=== PATIENT | male | born 1950 | race Caucasian/White ===

== ENCOUNTER → 2023-05-20 10:20 | Outpatient (REF) | payer MEDICARE, OTHER, SELFPAY ==
[2023-05-20 11:21] LABS: % Basophils 0.9 % (0-2); % Immature Granulocytes 0.3 % (0-0.5); % Lymphocytes 18.4 % (20.5-51.1); % Monocytes 11.1 % (1.7-9.3); % Neutrophils 66.3 % (42.2-75.2); Absolute Basophils 0.1 10^3/uL (0-0.2); Absolute Eosinophils 0.2 10^3/uL (0-0.7); Absolute Lymphocytes 1.2 10^3/uL (1.2-3.4); Absolute Monocytes 0.7 10^3/uL (0.1-0.6); Absolute Neutrophils 4.4 10^3/uL (1.4-6.5); Hematocrit 38.8 % (39.0-52.0); Hemoglobin 13.2 g/dL (13.0-18.0); Mean Corpuscular Hgb 30.1 pg (27.0-31.0); Mean Corpuscular Volume 88.4 fL (80.0-94.0); Mean Platelet Volume 10.6 fL (7.4-10.4); Nucleated Red Blood Cells % 0 % (-); Platelet Count 247 10^3/uL (130-400); Red Blood Cell Count 4.39 10^6/uL (4.70-6.10); Red Cell Dist. Width 14.6 % (11.5-14.5); White Blood Cell Count 6.6 10^3/uL (4.8-10.8)
[2023-05-20 11:58] LABS: ALT (SGPT) 37 U/L (0-50); AST (SGOT) 40 U/L (17-59); Albumin 4.7 g/dl (3.5-5.0); Alkaline Phosphatase 105 U/L (38-126); Blood Urea Nitrogen 25 mg/dl (9-20); Calcium 9.8 mg/dl (8.4-10.2); Carbon Dioxide 25 mmol/L (22-30); Chloride 102 mmol/L (98-107); Glucose 100 mg/dl (70-99); Potassium 4.9 mmol/L (3.5-5.1); Sodium 137 mmol/L (135-145); Total Bilirubin 0.5 mg/dl (0.2-1.3); Total Protein 6.9 g/dl (6.3-8.2); eGFR > 60.00
[2023-05-20 12:00] LABS: C-Reactive Protein < 5.00 mg/L (0.0-10.00)
== END ==
LOC: REG 10:20
PROVIDERS: ATTENDING PHYSICIAN Internal Medicine Rheumatology; FAMILY PHYSICIAN Family Medicine
DX: M06.4 Inflammatory polyarthropathy (principal); Z79.899 Other long term (current) drug therapy
CPT/HCPCS: 36415; 80053; 85025; 86140

== ENCOUNTER → 2023-06-24 10:32 | Outpatient (REF) | payer MEDICARE, OTHER, SELFPAY ==
[2023-06-24 11:35] LABS: % Basophils 0.1 % (0-2); % Immature Granulocytes 0.4 % (0-0.5); % Lymphocytes 6.8 % (20.5-51.1); % Monocytes 7.9 % (1.7-9.3); % Neutrophils 84.8 % (42.2-75.2); Absolute Lymphocytes 0.5 10^3/uL (1.2-3.4); Absolute Monocytes 0.6 10^3/uL (0.1-0.6); Absolute Neutrophils 6.6 10^3/uL (1.4-6.5); Hemoglobin 12.7 g/dL (13.0-18.0); Mean Corp Hgb Conc. 33.4 g/dL (33.0-37.0); Mean Corpuscular Hgb 29.7 pg (27.0-31.0); Mean Corpuscular Volume 88.8 fL (80.0-94.0); Mean Platelet Volume 10.6 fL (7.4-10.4); Nucleated Red Blood Cells % 0 % (-); Platelet Count 266 10^3/uL (130-400); Red Blood Cell Count 4.28 10^6/uL (4.70-6.10); Red Cell Dist. Width 15.9 % (11.5-14.5); White Blood Cell Count 7.8 10^3/uL (4.8-10.8)
[2023-06-24 12:00] LABS: ALT (SGPT) 36 U/L (0-50); AST (SGOT) 42 U/L (17-59); Albumin 4.9 g/dl (3.5-5.0); Alkaline Phosphatase 100 U/L (38-126); Blood Urea Nitrogen 22 mg/dl (9-20); Calcium 10.2 mg/dl (8.4-10.2); Carbon Dioxide 22 mmol/L (22-30); Chloride 101 mmol/L (98-107); Glucose 115 mg/dl (70-99); Potassium 4.6 mmol/L (3.5-5.1); Sodium 136 mmol/L (135-145); Total Bilirubin 0.7 mg/dl (0.2-1.3); Total Protein 7.3 g/dl (6.3-8.2); eGFR > 60.00
[2023-06-24 12:05] LABS: C-Reactive Protein < 5.00 mg/L (0.0-10.00)
[2023-06-26 20:42] LABS: Quantiferon Mitogen minus NIL 2.36 IU/mL; Quantiferon NIL 0.01 IU/mL; Quantiferon Plus TB2 minus NIL 0.01 IU/mL (0.00-0.34); Quantiferon TB Gold Plus Negative (Negative)
== END ==
LOC: REG 10:32
PROVIDERS: ATTENDING PHYSICIAN Internal Medicine Rheumatology; FAMILY PHYSICIAN Family Medicine
DX: Z12.5 Encounter for screening for malignant neoplasm of prostate (principal); M06.00 Rheumatoid arthritis without rheumatoid factor, unspecified site; M79.641 Pain in right hand; Z11.1 Encounter for screening for respiratory tuberculosis; Z79.899 Other long term (current) drug therapy
CPT/HCPCS: 36415; 80053; 85025; 86140; 86480; G0103

== ENCOUNTER → 2023-07-10 14:42 | Outpatient (REF) | payer MEDICARE, OTHER, SELFPAY ==
[2023-07-10 16:23] LABS: % Basophils 0.6 % (0-2); % Eosinophils 1.7 % (0-6); % Immature Granulocytes 0.2 % (0-0.5); % Lymphocytes 21.4 % (20.5-51.1); % Monocytes 9.5 % (1.7-9.3); % Neutrophils 66.6 % (42.2-75.2); Absolute Eosinophils 0.1 10^3/uL (0-0.7); Absolute Lymphocytes 1.1 10^3/uL (1.2-3.4); Absolute Monocytes 0.5 10^3/uL (0.1-0.6); Absolute Neutrophils 3.5 10^3/uL (1.4-6.5); Hematocrit 35.1 % (39.0-52.0); Hemoglobin 12.3 g/dL (13.0-18.0); Mean Corpuscular Hgb 30.8 pg (27.0-31.0); Mean Platelet Volume 10.5 fL (7.4-10.4); Nucleated Red Blood Cells % 0 % (-); Platelet Count 265 10^3/uL (130-400); Red Blood Cell Count 3.99 10^6/uL (4.70-6.10); Red Cell Dist. Width 16.3 % (11.5-14.5); White Blood Cell Count 5.3 10^3/uL (4.8-10.8)
[2023-07-10 16:37] LABS: Iron 110 ug/dl (49-181)
[2023-07-10 16:46] LABS: Percent Saturation 27 % (20-50); Total Iron Binding Capacity 405 ug/dl (261-462)
[2023-07-10 17:22] LABS: Ferritin 16.1 ng/ml (17.9-464.0)
[2023-07-10 17:53] LABS: Folate > 20.0 ng/ml (2.76-20); Vitamin B12 547 pg/ml (239-931)
== END ==
LOC: REG 14:42
PROVIDERS: ATTENDING PHYSICIAN Internal Medicine Rheumatology; FAMILY PHYSICIAN Family Medicine
DX: D64.9 Anemia, unspecified (principal); A09 Infectious gastroenteritis and colitis, unspecified; D51.9 Vitamin B12 deficiency anemia, unspecified; E53.8 Deficiency of other specified B group vitamins; Z79.899 Other long term (current) drug therapy
CPT/HCPCS: 36415; 82607; 82728; 82746; 83540; 83550; 85025

== ENCOUNTER → 2023-08-06 06:24 | Day surgery (SDC) | payer MEDICARE, OTHER, SELFPAY | LOC: GI 06:24 | PROVIDERS: ATTENDING PHYSICIAN Specialist | DX: K22.70 Barrett's esophagus without dysplasia (principal); K44.9 Diaphragmatic hernia without obstruction or gangrene; K31.7 Polyp of stomach and duodenum | CPT/HCPCS: 43239; 88305; 88342 ==

== ENCOUNTER → 2023-08-21 10:53 | Outpatient (REF) | payer MEDICARE, OTHER, SELFPAY ==
[2023-08-21 12:12] LABS: % Basophils 0.8 % (0-2); % Eosinophils 2.2 % (0-6); % Immature Granulocytes 0.6 % (0-0.5); % Lymphocytes 18.8 % (20.5-51.1); % Monocytes 9.5 % (1.7-9.3); % Neutrophils 68.1 % (42.2-75.2); Absolute Basophils 0.1 10^3/uL (0-0.2); Absolute Eosinophils 0.1 10^3/uL (0-0.7); Absolute Lymphocytes 1.2 10^3/uL (1.2-3.4); Absolute Monocytes 0.6 10^3/uL (0.1-0.6); Absolute Neutrophils 4.3 10^3/uL (1.4-6.5); Hematocrit 38.2 % (39.0-52.0); Hemoglobin 12.9 g/dL (13.0-18.0); Mean Corp Hgb Conc. 33.8 g/dL (33.0-37.0); Mean Corpuscular Hgb 31.9 pg (27.0-31.0); Mean Corpuscular Volume 94.3 fL (80.0-94.0); Mean Platelet Volume 10.6 fL (7.4-10.4); Nucleated Red Blood Cells % 0 % (-); Platelet Count 252 10^3/uL (130-400); Red Blood Cell Count 4.05 10^6/uL (4.70-6.10); Red Cell Dist. Width 15.2 % (11.5-14.5); White Blood Cell Count 6.3 10^3/uL (4.8-10.8)
[2023-08-21 14:19] LABS: Ferritin 20.2 ng/ml (17.9-464.0)
== END ==
LOC: REG 10:53
PROVIDERS: ATTENDING PHYSICIAN Internal Medicine Rheumatology; FAMILY PHYSICIAN Family Medicine
DX: D64.9 Anemia, unspecified (principal); E61.1 Iron deficiency; G95.9 Disease of spinal cord, unspecified
CPT/HCPCS: 36415; 82728; 85025

== ENCOUNTER → 2023-08-27 10:56 | Outpatient (REF) | payer MEDICARE, OTHER, SELFPAY | LOC: REG 10:56 | PROVIDERS: ATTENDING PHYSICIAN Internal Medicine Rheumatology; FAMILY PHYSICIAN Family Medicine | DX: D64.9 Anemia, unspecified (principal); E61.1 Iron deficiency; G95.9 Disease of spinal cord, unspecified; M06.4 Inflammatory polyarthropathy; M11.20 Other chondrocalcinosis, unspecified site; M19.041 Primary osteoarthritis, right hand; M19.042 Primary osteoarthritis, left hand; M50.90 Cervical disc disorder, unspecified, unspecified cervical region; M51.37 Other intervertebral disc degeneration, lumbosacral region; M54.9 Dorsalgia, unspecified; M79.641 Pain in right hand; Z79.899 Other long term (current) drug therapy | CPT/HCPCS: 82272 ==

== ENCOUNTER → 2023-09-12 10:34 | Outpatient (REF) | payer MEDICARE, OTHER, SELFPAY ==
[2023-09-12 11:19] LABS: % Basophils 0.7 % (0-2); % Immature Granulocytes 0.2 % (0-0.5); % Lymphocytes 15.6 % (20.5-51.1); % Monocytes 11.6 % (1.7-9.3); % Neutrophils 69.9 % (42.2-75.2); Absolute Eosinophils 0.1 10^3/uL (0-0.7); Absolute Lymphocytes 0.9 10^3/uL (1.2-3.4); Absolute Monocytes 0.7 10^3/uL (0.1-0.6); Absolute Neutrophils 4.2 10^3/uL (1.4-6.5); Hematocrit 35.7 % (39.0-52.0); Hemoglobin 12.2 g/dL (13.0-18.0); Mean Corp Hgb Conc. 34.2 g/dL (33.0-37.0); Mean Corpuscular Hgb 32.8 pg (27.0-31.0); Mean Platelet Volume 10.1 fL (7.4-10.4); Nucleated Red Blood Cells % 0 % (-); Platelet Count 235 10^3/uL (130-400); Red Blood Cell Count 3.72 10^6/uL (4.70-6.10); Red Cell Dist. Width 14.5 % (11.5-14.5)
== END ==
LOC: REG 10:34
PROVIDERS: ATTENDING PHYSICIAN Physician Assistant; FAMILY PHYSICIAN Family Medicine
DX: A69.20 Lyme disease, unspecified (principal); D64.9 Anemia, unspecified
CPT/HCPCS: 36415; 85025; 86618

== ENCOUNTER → 2023-11-14 13:19 | Outpatient (REF) | payer MEDICARE, OTHER, SELFPAY ==
[2023-11-14 14:06] LABS: % Basophils 0.6 % (0-2); % Eosinophils 1.5 % (0-6); % Immature Granulocytes 0.2 % (0-0.5); % Lymphocytes 22.6 % (20.5-51.1); % Monocytes 9.5 % (1.7-9.3); % Neutrophils 65.6 % (42.2-75.2); Absolute Eosinophils 0.1 10^3/uL (0-0.7); Absolute Lymphocytes 1.2 10^3/uL (1.2-3.4); Absolute Monocytes 0.5 10^3/uL (0.1-0.6); Absolute Neutrophils 3.5 10^3/uL (1.4-6.5); Hematocrit 36.9 % (39.0-52.0); Hemoglobin 12.9 g/dL (13.0-18.0); Mean Corpuscular Hgb 33.2 pg (27.0-31.0); Mean Corpuscular Volume 94.9 fL (80.0-94.0); Mean Platelet Volume 10.3 fL (7.4-10.4); Nucleated Red Blood Cells % 0 % (-); Platelet Count 238 10^3/uL (130-400); Red Blood Cell Count 3.89 10^6/uL (4.70-6.10); Red Cell Dist. Width 13.3 % (11.5-14.5); Reticulocyte Count 1.5 % (0.4-2.8); White Blood Cell Count 5.4 10^3/uL (4.8-10.8)
[2023-11-14 14:12] LABS: Erythrocyte Sed Rate 10 mm/hour (0-20)
[2023-11-14 14:42] LABS: ALT (SGPT) 33 U/L (0-50); AST (SGOT) 44 U/L (17-59); Albumin 4.7 g/dl (3.5-5.0); Alkaline Phosphatase 97 U/L (38-126); Blood Urea Nitrogen 21 mg/dl (9-20); Calcium 9.4 mg/dl (8.4-10.2); Carbon Dioxide 27 mmol/L (22-30); Chloride 101 mmol/L (98-107); Direct Bilirubin 0.4 mg/dl (0.0-0.4); Glucose 95 mg/dl (70-99); Iron 97 ug/dl (49-181); LDH 289 U/L (120-246); Potassium 3.9 mmol/L (3.5-5.1); Sodium 140 mmol/L (135-145); Total Bilirubin 0.6 mg/dl (0.2-1.3); Total Protein 6.6 g/dl (6.3-8.2); eGFR > 60.00
[2023-11-14 14:51] LABS: Percent Saturation 24 % (20-50); Total Iron Binding Capacity 396 ug/dl (261-462)
[2023-11-14 15:48] LABS: Folate 18.3 ng/ml (2.76-20); Vitamin B12 947 pg/ml (239-931)
== END ==
LOC: REG 13:19
PROVIDERS: ATTENDING PHYSICIAN Internal Medicine Hematology & Oncology; FAMILY PHYSICIAN Family Medicine
DX: D64.9 Anemia, unspecified (principal); D51.3 Other dietary vitamin B12 deficiency anemia
CPT/HCPCS: 36415; 80053; 82248; 82607; 82668; 82746; 83010; 83540; 83550; 83615; 83921; 84155; 84165; 85025; 85045; 85652

== ENCOUNTER → 2023-12-12 13:10 | Outpatient (REF) | payer MEDICARE, OTHER, SELFPAY ==
[2023-12-12 13:50] LABS: % Eosinophils 1.4 % (0-6); % Immature Granulocytes 0.2 % (0-0.5); % Lymphocytes 23.9 % (20.5-51.1); % Monocytes 12.1 % (1.7-9.3); % Neutrophils 61.4 % (42.2-75.2); Absolute Basophils 0.1 10^3/uL (0-0.2); Absolute Eosinophils 0.1 10^3/uL (0-0.7); Absolute Lymphocytes 1.2 10^3/uL (1.2-3.4); Absolute Monocytes 0.6 10^3/uL (0.1-0.6); Absolute Neutrophils 3.2 10^3/uL (1.4-6.5); Hematocrit 37.6 % (39.0-52.0); Hemoglobin 13.2 g/dL (13.0-18.0); Mean Corp Hgb Conc. 35.1 g/dL (33.0-37.0); Mean Corpuscular Hgb 31.8 pg (27.0-31.0); Mean Corpuscular Volume 90.6 fL (80.0-94.0); Mean Platelet Volume 10.3 fL (7.4-10.4); Nucleated Red Blood Cells % 0 % (-); Platelet Count 246 10^3/uL (130-400); Red Blood Cell Count 4.15 10^6/uL (4.70-6.10); Red Cell Dist. Width 13.9 % (11.5-14.5); White Blood Cell Count 5.1 10^3/uL (4.8-10.8)
[2023-12-12 14:12] LABS: ALT (SGPT) 36 U/L (0-50); AST (SGOT) 40 U/L (17-59); Albumin 4.9 g/dl (3.5-5.0); Alkaline Phosphatase 104 U/L (38-126); Blood Urea Nitrogen 14 mg/dl (9-20); Calcium 9.9 mg/dl (8.4-10.2); Carbon Dioxide 24 mmol/L (22-30); Chloride 101 mmol/L (98-107); Glucose 105 mg/dl (70-99); HDL Cholesterol 98 mg/dl; LDL Cholesterol, Calculated 71 mg/dl; Sodium 138 mmol/L (135-145); Total Bilirubin 0.9 mg/dl (0.2-1.3); Total Cholesterol 194 mg/dl (50-199); Total Protein 6.8 g/dl (6.3-8.2); Triglyceride 125 mg/dl (10-149); Very Low Density Lipoprotein 25 mg/dl (0-30); eGFR > 60.00
[2023-12-12 14:18] LABS: C-Reactive Protein < 5.00 mg/L (0.0-10.00)
== END ==
LOC: REG 13:10
PROVIDERS: ATTENDING PHYSICIAN Internal Medicine Rheumatology; FAMILY PHYSICIAN Family Medicine; REFERRING PHYSICIAN Specialist
DX: M06.4 Inflammatory polyarthropathy (principal); Z79.899 Other long term (current) drug therapy; E78.2 Mixed hyperlipidemia
CPT/HCPCS: 36415; 80053; 80061; 85025; 86140

== ENCOUNTER → 2024-02-03 08:07 | Outpatient (REF) | payer MEDICARE, OTHER, SELFPAY | LOC: PAVMRI 08:07 | PROVIDERS: ATTENDING PHYSICIAN Orthopaedic Surgery; FAMILY PHYSICIAN Family Medicine | DX: M25.511 Pain in right shoulder (principal); Z98.890 Other specified postprocedural states | CPT/HCPCS: 73221 ==

== ENCOUNTER → 2024-03-02 11:41 | Outpatient (REF) | payer MEDICARE, OTHER, SELFPAY ==
[2024-03-02 12:37] LABS: % Basophils 0.5 % (0-2); % Eosinophils 1.4 % (0-6); % Immature Granulocytes 0.3 % (0-0.5); % Lymphocytes 16.7 % (20.5-51.1); % Monocytes 8.2 % (1.7-9.3); % Neutrophils 72.9 % (42.2-75.2); Absolute Eosinophils 0.1 10^3/uL (0-0.7); Absolute Lymphocytes 1.3 10^3/uL (1.2-3.4); Absolute Monocytes 0.6 10^3/uL (0.1-0.6); Absolute Neutrophils 5.6 10^3/uL (1.4-6.5); Hematocrit 38.7 % (39.0-52.0); Mean Corp Hgb Conc. 33.6 g/dL (33.0-37.0); Mean Corpuscular Hgb 31.9 pg (27.0-31.0); Mean Corpuscular Volume 95.1 fL (80.0-94.0); Mean Platelet Volume 10.2 fL (7.4-10.4); Nucleated Red Blood Cells % 0 % (-); Platelet Count 229 10^3/uL (130-400); Red Blood Cell Count 4.07 10^6/uL (4.70-6.10); Red Cell Dist. Width 13.6 % (11.5-14.5); White Blood Cell Count 7.7 10^3/uL (4.8-10.8)
[2024-03-02 13:40] LABS: Iron 128 ug/dl (49-181)
[2024-03-02 13:50] LABS: Percent Saturation 34 % (20-50); Total Iron Binding Capacity 374 ug/dl (261-462)
== END ==
LOC: REG 11:41
PROVIDERS: ATTENDING PHYSICIAN Internal Medicine Hematology & Oncology; FAMILY PHYSICIAN Family Medicine
DX: D64.9 Anemia, unspecified (principal); D51.3 Other dietary vitamin B12 deficiency anemia
CPT/HCPCS: 36415; 82728; 83540; 83550; 85025

== ENCOUNTER 2024-04-08 06:19 | Day surgery (SDC) | payer MEDICARE, OTHER, SELFPAY ==
[2024-03-26 13:17] VITALS: BMI 25.9
[2024-04-08] VITALS (7 sets, daily range): BP systolic 131–156; BP diastolic 72–90; BMI 25.9
[2024-04-08] MEDS: TYLENOL 1000 MG PO (10:13)
[2024-04-08] MEDS: NORMOSOL-R/PLASMALYTE-A 1000 IV (10:13)
[2024-04-08] MEDS: CELEBREX 200 MG PO (10:13)
== END 2024-04-08 13:48 | disposition home or self-care (01) ==
LOC: SDS 06:19
PROVIDERS: ATTENDING PHYSICIAN Orthopaedic Surgery
DX: S46.011A Strain of muscle(s) and tendon(s) of the rotator cuff of right shoulder, initial encounter (principal); X58.XXXA Exposure to other specified factors, initial encounter
CPT/HCPCS: 29827; C1713

== ENCOUNTER → 2024-06-11 08:28 | Outpatient (REF) | payer MEDICARE, OTHER, SELFPAY | LOC: MRI 08:28 | PROVIDERS: ATTENDING PHYSICIAN Psychiatry & Neurology Neurology; FAMILY PHYSICIAN Family Medicine | DX: M96.1 Postlaminectomy syndrome, not elsewhere classified (principal) | CPT/HCPCS: 72156; 72158; A9575 ==

== ENCOUNTER → 2024-07-15 14:35 | Outpatient (REF) | payer MEDICARE, OTHER, SELFPAY | LOC: RAD 14:35 | PROVIDERS: ATTENDING PHYSICIAN Family Medicine | DX: K22.70 Barrett's esophagus without dysplasia (principal); R06.09 Other forms of dyspnea | CPT/HCPCS: 71046 ==

== ENCOUNTER → 2024-07-28 08:05 | Outpatient (REF) | payer MEDICARE, OTHER, SELFPAY | LOC: HWRCS 08:05 | PROVIDERS: ATTENDING PHYSICIAN Internal Medicine Cardiovascular Disease; FAMILY PHYSICIAN Family Medicine | DX: R06.09 Other forms of dyspnea (principal) | CPT/HCPCS: 78452; 93017; A9500; J2785 ==

== ENCOUNTER → 2024-08-12 12:53 | Outpatient (REF) | payer MEDICARE, OTHER, SELFPAY | LOC: RCS 12:53 | PROVIDERS: ATTENDING PHYSICIAN Internal Medicine Cardiovascular Disease; FAMILY PHYSICIAN Family Medicine | DX: R06.09 Other forms of dyspnea (principal) | CPT/HCPCS: 93306 ==

== ENCOUNTER 2025-01-27 15:05 | Emergency (ER) | payer MEDICARE, OTHER, SELFPAY ==
[2025-01-27 15:07] VITALS: BP 190/103
[2025-01-27 15:22] VITALS: BP 170/93
--- NOTE | 2025-01-27 15:29 | ED.GENMED ---
History of Present Illness
General
Chief Complaint: Breathing Problem
Source: patient
Exam Limitations: none
Time Seen by Provider: 01/27/25 15:18
Nursing documentation reviewed up to this point in time: agreed with
History of Present Illness
History of Present Illness:
75-year-old male with past medical history of hypertension and hyperlipidemia, former smoker, history of Cancino's esophagus who presents to the emergency department for evaluation of shortness of breath. Patient reports that symptoms have been
chronic for about 8 months now but he feels that they have been particularly bothersome over the past month or so. He describes constant mild symptoms they get more intense with certain activities although he says that this is not consistent�he
says that today he walked from the parking lot without any shortness of breath but at times he will become short of breath with simply bending over to tie his shoes. He has had mild chronic cough worse in the morning. He denies any chest pain. He
denies any swelling in the legs or pain in the legs. He has not had any other acute symptoms. He says that he has been seen by multiple doctors for this including his primary care doctor, pulmonology, cardiology; today he saw the GI doctor
thinking that perhaps his symptoms could be from upper airway irritation from silent reflux. He says that after this appointment without clear diagnosis he called his primary doctor once again and was referred to the ER to be assessed. He denies
any known cardiac history. He denies any more recent travel although in the past year he says he has had 2 long trips: one to [place], [place] which was a 12-hour car ride and went to [place], [place] which was about a 5-hour car ride.
Review of Systems
Review of Systems
All Other Systems: ROS reviewed and negative except as documented in HPI and ROS
Constitutional: Denies fever or chills
Respiratory: Reports cough and trouble breathing
Cardiac: Denies chest pain or palpitations
ABD/GI: Denies abdominal pain, nausea or vomiting
: Denies flank pain
Musculoskeletal: Denies edema, neck pain or back pain
Neurological: Denies dizzy or headache
Phy Exam
Physical Exam
Physical Exam:
General: Awake, alert, oriented x3; no acute distress
Head: Normocephalic, atraumatic
Eyes: Conjunctiva normal, EOMI
Throat: Airway intact, handling secretions
Neck: Trachea midline, supple without meningismus, no JVD
Lungs: Clear to auscultation bilaterally, no wheezing, rales, rhonchi
Heart: Tachycardia with regular rhythm, no murmurs, gallops, or rubs
Abd: Soft, non distended, nontender
Neuro: Grossly intact
Skin: Warm and dry
Extremities: No edema in extremities, no calf tenderness, equal pulses in all extremities
Scores
Heart Failure Risk
Heart Failure Risk Score: Not Applicable
Heart Score for Chest Pain Patients
STEMI patient?: Not applicable
Withdrawal Assessment of Alcohol
Withdrawal Assessment Completed?: Not applicable
Course
Orders/Labs/Results
Orders:
Orders
01/27/25 15:09
Electrocardiogram (*1) Urgent
Reason for Study: Chest Pain
EKG- Treatment ONCE
01/27/25 15:19
Electrocardiogram (*1) Urgent
Reason for Study: Shortness of Breath
EKG- Treatment ONCE
01/27/25 15:27
CT Chest PE Study Urgent
Comment:
Reason For Exam: SOB, tachycardia
01/27/25 15:37
Complete Blood Count/With Diff Urgent
Comprehensive Metabolic Panel Urgent
NT-proBNP Urgent
Troponin I Urgent
Abnormal Lab Results
01/27/25
15:37
RBC 4.09 L 10^6/uL
(4.70-6.10)
Hct 36.9 L %
(39.0-52.0)
MCH 31.8 H pg
(27.0-31.0)
BUN 22 H mg/dl
(9-20)
Glucose 101 H mg/dl
(70-99)
01/27/25 15:37
01/27/25 15:37
Vital Signs
Initial and Last Documented VS:
Initial Vital Signs
Temp Pulse Resp BP Pulse Ox
36.4 C 99 16 190/103 99
01/27/25 15:07 01/27/25 15:07 01/27/25 15:07 01/27/25 15:07 01/27/25 15:07
Last Documented Vital Signs
Temp Pulse Resp BP Pulse Ox
36.4 C 97 14 138/85 95
01/27/25 15:07 01/27/25 16:45 01/27/25 16:45 01/27/25 16:00 01/27/25 16:00
MDM/Problems Addressed
Differential Diagnosis Includes:
Anemia, deconditioning, CHF, angina/ACS, pulmonary embolism, chronic bronchitis/COPD, anxiety
MDM/Problems Addressed:
75-year-old male presents for evaluation of shortness of breath for the past 8 months somewhat worse over the past month. Seen by multiple specialists with no clear diagnosis and primary referred to the ER for further assessment. He says he has
already been seen by pulmonology with no clear-cut diagnosis; he saw cardiology in July and had stress test and echocardiogram which were reassuring�I was able to review these results. Vital signs here are significant for hypertension and mild
tachycardia. No tachypnea or hypoxia. Physical exam as above. EKG shows sinus rhythm with right bundle branch block with no acute ischemia. Plan to check labs including a CBC and a CMP. Will check troponin and proBNP. Check CT chest to rule
out PE. Reassess at the above.
Labs reviewed: CBC shows no anemia, CMP no clinically significant abnormalities. Troponin negative x 1 with symptoms for months�rules out for acute OH and low suspicion that symptoms are anginal. proBNP is not elevated and he does not appear to be
in CHF. CT chest showed no PE. There were some early changes of emphysema and certainly this could account for his chronic dyspnea. He was noted to have coronary calcifications on CT chest. Had recent stress test and echo which were reassuring.
At this point no clear indication for hospitalization. I think he can be discharged to follow-up as an outpatient for his symptoms. Urged him to continue to follow with pulmonology and cardiology. I did discuss with his primary care physician to
ensure good follow-up. All questions answered.
Chronic conditions affecting care:
Ex-smoker
Acute Exacerbation and/or Progression of Chronic Illness: HTN
*Radiology
Radiology exam reviewed: radiology read reviewed
*Pulse Oximetry
SaO2: 99
Oxygen Mode of Delivery: Room air
Patient hypoxic: no (99%)
*EKG
Interpreted by ED Provider?: Yes
Heart Rate: 100
Rate: tachycardiac
Rhythm: sinus
[place]: normal axis
Interval: normal interval
QRS Pattern: right bundle branch block (Incomplete)
Ischemia: no ischemia
*Critical Care Note
Total Time (30-74mins, 75-104mins- exclusive of procedures): Not Applicable
Data Reviewed
Review of Other/Old Records Reveals: Labs, Records and Testing
Source: patient and records
Patient Management
Discussion with other providers: PCP (Discussed with PCP)
ED Attending Note
-
Portions of this chart may have been created with voice recognition software.� Occasional wrong word or��sound alike� substitutions may have occurred due to the inherent limitations of voice recognition software.
Discharge Plan
Departure
Patient Disposition: Home (Routine Discharge)
Date of Disposition: 01/27/25
Time of Disposition: 17:08
Patient with high blood pressure during this ER visit?: Yes
Discharge Problem:
Dyspnea
Instructions: Shortness of Breath (Dyspnea) (DC)
Prescriptions:
No Action
losartan 50 mg tablet
50 mg PO HS
cyclobenzaprine 10 mg tablet
10 mg PO PRN PRN (Reason: muscle spasms)
atorvastatin 40 mg tablet
40 mg PO DAILY
famotidine 40 mg tablet
40 mg PO HS
amlodipine 10 mg tablet
10 mg PO HS
pantoprazole 40 mg tablet,delayed release (DR/EC)
40 mg PO DAILY
gabapentin 100 mg capsule
300 mg PO BID
cholecalciferol (vitamin D3) [Vitamin D3] 50 mcg (2,000 unit) Tablet
2,000 unit PO DAILY
cyanocobalamin (vitamin B-12) 3,000 mcg Capsule
3,000 mcg PO DAILY
htqxgqac-ijxc-tmvyg-oreg-capry 100 mg-150 mg- 50 mg-150 mg Capsule
2,250 cap PO BID
multivitamin Tablet
1 tab PO DAILY
sulfasalazine 500 mg Tablet,Delayed Release (Dr/Ec)
0.5 g PO BID
magnesium 250 mg Tablet
500 mg PO HS
folic acid 800 mcg Tablet
0.8 mg PO DAILY
Referrals:
Hood Rush MD [Family Provider, Family Practice] - Follow up in 1 week
Activity Restrictions/Additional Instructions:
You were seen in the ER for shortness of breath. Your workup here showed some signs concerning for early emphysema. You also had some calcification of your arteries in your heart. You should see the post exchange manager and economic analyst after your visit
today to follow-up on these things. You should see your primary doctor within the next week. If you feel your symptoms are worsening please return to the ER.
Thank you for visiting the Emergency Department at [facility].
1. Please schedule a follow up appointment as directed. Call first thing tomorrow morning to make an appointment.
2. If indicated, please take your medications as instructed and indicated on discharge paperwork.
3. If any of your symptoms do not improve, or persist, or become more severe within 6-12 hours, please return to the emergency department for further care.
4. Please return to the emergency department if you develop a headache, neck pain/stiffness, fever greater than 100.4F, chest pain, shortness of breath, persistent nausea, vomiting, slurred speech, difficulty walking, numbness/tingling, weakness,
signs of infection or any other symptoms that are worrisome to you.
Please call [phone] if you have any questions.
Interventions
Interventions:
*Risk Screen - Suicide Last Done: 01/27/25 15:07
*General Assessment Last Done: 01/27/25 15:39
*Neglect/Abuse Screening Last Done: 01/27/25 15:07
*ED- Fall Risk Assessment Last Done: 01/27/25 15:39
*ED COVID-19 Vaccine History Last Done: 01/27/25 15:39
*ED Influenza Vaccine History Last Done: 01/27/25 15:39
ED- Cardiac Assessment Last Done: 01/27/25 15:39
ED- Pulmonary Assessment Last Done: 01/27/25 15:39
Discharge Date and Time
Print Language: IRISH
[2025-01-27 15:44] LABS: Hematocrit 36.9 % (39.0-52.0); Hemoglobin 13.0 g/dL (13.0-18.0); Mean Corp Hgb Conc. 35.2 g/dL (33.0-37.0); Mean Corpuscular Volume 90.2 fL (80.0-94.0); Nucleated Red Blood Cells % 0 % (-); Platelet Count 252 10^3/uL (130-400); Red Cell Dist. Width 13.6 % (11.5-14.5)
[2025-01-27 15:56] LABS: ALT (SGPT) 48 U/L (0-50); AST (SGOT) 51 U/L (17-59); Albumin 5.0 g/dl (3.5-5.0); Alkaline Phosphatase 98 U/L (38-126); Blood Urea Nitrogen 22 mg/dl (9-20); Calcium 9.6 mg/dl (8.4-10.2); Carbon Dioxide 25 mmol/L (22-30); Chloride 103 mmol/L (98-107); Glucose 101 mg/dl (70-99); Potassium 3.8 mmol/L (3.5-5.1); Sodium 135 mmol/L (135-145); Total Protein 7.6 g/dl (6.3-8.2); eGFR > 60.00
[2025-01-27 16:00] VITALS: BP 138/85
[2025-01-27 16:08] LABS: Troponin I 0.016 ng/ml
[2025-01-27 17:00] VITALS: BP 124/95
== END 2025-01-27 17:25 | disposition home or self-care (01) ==
LOC: EMR 15:05
PROVIDERS: EMERGENCY PHYSICIAN Emergency Medicine; FAMILY PHYSICIAN Family Medicine
DX: R06.00 Dyspnea, unspecified (principal); I10 Essential (primary) hypertension; J43.9 Emphysema, unspecified; E78.5 Hyperlipidemia, unspecified; I25.10 Atherosclerotic heart disease of native coronary artery without angina pectoris; I45.10 Unspecified right bundle-branch block; Z87.19 Personal history of other diseases of the digestive system; Z87.891 Personal history of nicotine dependence
CPT/HCPCS: 99284; 71275; 80053; 83880; 84484; 85025; 93005; Q9967

== ENCOUNTER 2025-02-02 14:53 | Emergency (ER) | payer MEDICARE, OTHER, SELFPAY ==
[2025-02-02 15:02] VITALS: BP 107/69
[2025-02-02 15:18] LABS: Hematocrit 38.3 % (39.0-52.0); Hemoglobin 13.3 g/dL (13.0-18.0); Mean Corp Hgb Conc. 34.7 g/dL (33.0-37.0); Mean Corpuscular Volume 92.5 fL (80.0-94.0); Nucleated Red Blood Cells % 0 % (-); Platelet Count 232 10^3/uL (130-400); Red Cell Dist. Width 13.7 % (11.5-14.5)
[2025-02-02 15:47] LABS: ALT (SGPT) 35 U/L (0-50); AST (SGOT) 34 U/L (17-59); Albumin 5.0 g/dl (3.5-5.0); Alkaline Phosphatase 92 U/L (38-126); Blood Urea Nitrogen 23 mg/dl (9-20); Calcium 9.5 mg/dl (8.4-10.2); Carbon Dioxide 26 mmol/L (22-30); Chloride 101 mmol/L (98-107); Glucose 86 mg/dl (70-99); Potassium 4.3 mmol/L (3.5-5.1); Sodium 137 mmol/L (135-145); Total Protein 7.6 g/dl (6.3-8.2); eGFR > 60.00
[2025-02-02] MEDS: ANCEF 10 IV (17:38)
--- NOTE | 2025-02-02 17:52 | ED.GENMED ---
History of Present Illness
General
Chief Complaint: Skin Problem
Time Seen by Provider: 02/02/25 16:41
History of Present Illness
History of Present Illness:
75-year-old male with history of hypertension and hyperlipidemia presents to the emergency department for evaluation of redness and pain to the left arm for the past 2 to 3 days. Rapidly progressed in the forearm to the upper arm. Saw his primary
care physician today who referred him to the emergency department for IV antibiotics. Denies fevers or chills. Denies any known inciting trauma or event.
Review of Systems
Review of Systems
Allergies reviewed?: Yes
All Other Systems: ROS reviewed and negative except as documented in HPI and ROS
Phy Exam
Physical Exam
Physical Exam:
GEN: Well appearing, NAD, WDWN
HEENT: Oral mucosa moist, no scleral icterus
Cardiac: Regular rate and rhythm, no murmurs
Lung: No respiratory distress, no tachypnea
MSK: Diffuse erythema to the left forearm proximally, no induration or fluctuance, lymphangitis extending up the medial upper arm to the axilla with no palpable adenopathy
Skin: Good color, no pallor or jaundice, no rashes
Neuro: AO x3, moves all extremities freely
Psych: Calm, cooperative
Course
Orders/Labs/Results
Orders:
Orders
02/02/25 15:09
Complete Blood Count/With Diff Urgent
Comprehensive Metabolic Panel Urgent
Lactic Acid Q4H
Comment: ON ICE, CANCEL 2ND ORDER IF FIRST LACTIC ACID LEVEL <2
Blood Culture Q20M
DESIRE Source: Blood/Venous
Specimen Description:
Comment: Urgent from separate sites. If patient screens positive for possible sepsis
02/02/25 16:45
Blood Culture Q20M
DESIRE Source: Blood/Venous
Specimen Description:
Comment: Urgent from separate sites. If patient screens positive for possible sepsis
02/02/25 17:30
CeFAZolin 2 GRAM [Ancef] 2 grams in 10 ml IV NOW
Abnormal Lab Results
02/02/25
15:09
RBC 4.14 L 10^6/uL
(4.70-6.10)
Hct 38.3 L %
(39.0-52.0)
MCH 32.1 H pg
(27.0-31.0)
Absolute Neuts (auto) 8.0 H 10^3/uL
(1.4-6.5)
Absolute Lymphs (auto) 0.9 L 10^3/uL
(1.2-3.4)
Absolute Monos (auto) 1.0 H 10^3/uL
(0.1-0.6)
Neutrophils % 78.8 H %
(42.2-75.2)
Lymphocytes % 9.2 L %
(20.5-51.1)
Monocytes % 9.6 H %
(1.7-9.3)
BUN 23 H mg/dl
(9-20)
Lactic Acid 0.6 L mmol/L
(0.7-2.0)
02/02/25 15:09
02/02/25 15:09
Vital Signs
Initial and Last Documented VS:
Initial Vital Signs
Temp Pulse Resp BP Pulse Ox
97.9 F 76 16 107/69 98
02/02/25 15:02 02/02/25 15:02 02/02/25 15:02 02/02/25 15:02 02/02/25 15:02
Last Documented Vital Signs
Temp Pulse Resp BP Pulse Ox
97.9 F 76 16 107/69 98
02/02/25 15:02 02/02/25 15:02 02/02/25 15:02 02/02/25 15:02 02/02/25 17:54
MDM/Problems Addressed
MDM/Problems Addressed:
Patient's workup is reassuring, he certainly has progressive cellulitis with lymphangitis. He declines to be admitted to the hospital today which is not unreasonable given his overall well clinical status. Will give 1 dose of IV cefazolin and
discharged on high-dose cephalexin, ED return parameters discussed
*Pulse Oximetry
SaO2: 98
Oxygen Mode of Delivery: Room air
Patient hypoxic: no
*Critical Care Note
Total Time (30-74mins, 75-104mins- exclusive of procedures): Not Applicable
ED Attending Note
-
Portions of this chart may have been created with voice recognition software.� Occasional wrong word or��sound alike� substitutions may have occurred due to the inherent limitations of voice recognition software.
Discharge Plan
Departure
Patient Disposition: Home (Routine Discharge)
Date of Disposition: 02/02/25
Time of Disposition: 17:54
Patient with high blood pressure during this ER visit?: No
Discharge Problem:
Cellulitis of forearm, left
Instructions: Cellulitis (Skin Infection), Adult (DC)
Prescriptions:
New
cephalexin 500 mg capsule
500 mg PO Q6H 7 Days Qty: 28 0RF
No Action
losartan 50 mg tablet
50 mg PO HS
cyclobenzaprine 10 mg tablet
10 mg PO DAILY
atorvastatin 40 mg tablet
40 mg PO DAILY
famotidine 40 mg tablet
40 mg PO HS
amlodipine 10 mg tablet
10 mg PO HS
pantoprazole 40 mg tablet,delayed release (DR/EC)
40 mg PO BID
gabapentin 100 mg capsule
300 mg PO BID
cholecalciferol (vitamin D3) [Vitamin D3] 50 mcg (2,000 unit) Tablet
2,000 unit PO DAILY
cyanocobalamin (vitamin B-12) 3,000 mcg Capsule
3,000 mcg PO DAILY
folic acid 800 mcg Tablet
0.8 mg PO DAILY
Theragen Tablet
1 tab PO DAILY
magnesium oxide 200 mg magnesium Tablet
200 mg PO DAILY
acetaminophen [Tylenol] 325 mg Tablet
325 mg PO Q6HPRN PRN (Reason: mild pain)
polyethylene glycol 3350 [Miralax] 17 gram Powder In Packet
17 g PO DAILYPRN PRN (Reason: constipation)
Referrals:
UNKNOWN - PT NOT,INTERVIEWE [Family Provider]
Activity Restrictions/Additional Instructions:
Return to the emergency department if you develop fever, chills, or worsening redness despite antibiotics
Interventions
Interventions:
*Risk Screen - Suicide Last Done: 02/02/25 15:02
*Neglect/Abuse Screening Last Done: 02/02/25 15:02
*Nursing Disposition Last Done: 02/02/25 18:25
ED-Skin Assessment Last Done: 02/02/25 16:45
Discharge Date and Time
Discharge Date/Time: 02/02/25 18:26
Print Language: WOLOF
== END 2025-02-02 18:26 | disposition home or self-care (01) ==
LOC: EMR 14:53
PROVIDERS: EMERGENCY PHYSICIAN Student in an Organized Health Care Education/Training Program
DX: L03.114 Cellulitis of left upper limb (principal); I10 Essential (primary) hypertension; E78.5 Hyperlipidemia, unspecified
CPT/HCPCS: 96374; 99284; 80053; 83605; 85025; 87040

== ENCOUNTER → 2025-03-01 12:00 | Outpatient (REF) | payer MEDICARE, OTHER, SELFPAY | LOC: DHSLP 12:00 | PROVIDERS: ATTENDING PHYSICIAN Internal Medicine Critical Care Medicine; FAMILY PHYSICIAN Family Medicine | DX: G47.33 Obstructive sleep apnea (adult) (pediatric) (principal) | CPT/HCPCS: 95800 ==